=== PATIENT | male | born 1970 | race Two or more races ===

== ENCOUNTER 2018-05-03 03:44 | Emergency (ER) | payer MEDICARE ==
[~2018-05-03] VITALS: Ht 160 cm; Wt 65.8 kg
[2018-05-03 07:26] VITALS: BP 110/78
== END 2018-05-03 08:22 | disposition home or self-care (01) ==
LOC: ER 03:46
DX: L03.114 Cellulitis of left upper limb (principal); Z59.0 Homelessness
CPT/HCPCS: 73130

== ENCOUNTER 2024-07-17 18:21 | Inpatient (IN) | payer OTHER ==
[~2024-07-17] VITALS: Ht 160 cm; Wt 81.0 kg
[2024-07-17] MEDS: DexAMETHasone SOD PHOS 10MG/1ML VIAL INJ IM ONE (18:30)
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
[2024-07-17] MEDS: ALBUTEROL SULF 2.5 MG/0.5ML(0.5%) NEB SOLN NEB ONE (18:47)
[2024-07-17] MEDS: IPRATROPIUM BROM 0.5 MG/2.5ML INH SOL NEB ONE (18:47)
--- NOTE | 2024-07-17 18:59 | DVH ---
EXAMINATION: AP portable chest radiograph CLINICAL HISTORY: Shortness of breath COMPARISON: None TECHNIQUE: Portable AP upright view of the chest FINDINGS: Bibasilar airspace disease left worse than right. IMPRESSION: 1. Bibasilar airspace disease left worse than right
[2024-07-17 19:08] LABS: Eosinophils # (auto) 0 10 ^3/uL (0-0.8); Eosinophils % (auto) 0.1 % (0.0-7.0); Nucleated Red Blood Cells % 0.1 %
[2024-07-17 19:10] LABS: Basophils # (auto) 0 10 ^3/uL (0-0.2); Basophils % (auto) 0.2 % (0.0-2.0); Hematocrit 30.6 % (41.0-53.0); Hemoglobin 9.3 g/dL (13.5-17.5); Lymphocytes # (auto) 0.2 10 ^3/uL (0.4-5.4); Lymphocytes % (auto) 1.4 % (10.0-50.0); Mean Corpuscular Hemoglobin 18.8 pg (28.0-32.0); Mean Corpuscular Hgb Conc. 30.4 g/dL (32.0-36.0); Monocytes # (auto) 0.3 10 ^3/uL (0-1.3); Monocytes % (auto) 1.9 % (0.0-12.0); Neutrophils # (auto) 15.9 10 ^3/uL (1.6-8.6); Neutrophils % (auto) 96.4 % (37.0-80.0); Platelet Count (auto) 329 10^3/uL (140-450); Red Blood Cells 4.93 10^6/uL (4.5-5.90); White Blood Cell 16.5 10^3/uL (4.4-10.8)
[2024-07-17 19:13] LABS: Red Cell Distribution Width 20.1 % (11.8-14.3)
[2024-07-17 19:35] LABS: Potassium 3.9 mmol/L (3.5-5.1)
[2024-07-17 19:36] LABS: Anion Gap 10 (5-15); Carbon Dioxide 25 mmol/L (20-31)
[2024-07-17 19:37] LABS: Calcium 9.5 mg/dL (8.7-10.4)
[2024-07-17] MEDS: ACETAMINOPHEN 325 MG TAB PO ONE (19:40)
[2024-07-17 19:42] LABS: BUN/Creatinine Ratio 18.4 (10.0-20.0); Blood Urea Nitrogen 19 mg/dL (9-23); Lipase 31 U/L (12-53)
[2024-07-17 19:43] LABS: Chloride 92 mmol/L (98-107); Glucose 133 mg/dL (74-106); Sodium 127 mmol/L (136-145)
[2024-07-17 20:00] LABS: Lactic Acid w/Reflex 2.2 mmol/L (0.4-2.0)
[2024-07-17] MEDS: SODIUM CHLORIDE 0.9% 1,000 ML IV ONE (21:39)
[2024-07-17 21:45] LABS: COVID19 ANTIGEN SOFIA FIA NEGATIVE (NEGATIVE); Rapid Influenza A Negative (Negative); Rapid Influenza B Negative (Negative)
[2024-07-17] MEDS: ONDANSETRON ODT 4 MG TAB PO ONE (22:27)
[2024-07-17] MEDS: HYDROcodone-ACET 10/325MG TAB PO ONE (22:27)
[2024-07-18 01:32] VITALS: PULSE 94; RESP 15; O2SAT 97
[2024-07-18] MEDS: AZITHROMYCIN 500MG/ 250ML 250 ML IV ONE (03:10)
[2024-07-18] MEDS ORDERED: ACETAMINOPHEN 325 MG TAB PO PRN (03:45)
[2024-07-18] MEDS ORDERED: ONDANSETRON HCL 4 MG/2 ML VIAL IV PRN (03:45)
[2024-07-18] MEDS ORDERED: ALBUTEROL SULF 2.5 MG/0.5ML(0.5%) NEB SOLN NEB PRN (03:45)
[2024-07-18] MEDS: SODIUM CHLORIDE 0.9% 1,000 ML IV SCH (03:45)
[2024-07-18] MEDS ORDERED: DOCUSATE SOD 100 MG CAP PO PRN (03:45)
[2024-07-18] MEDS: cefTRIAXone 1GM/50ML D5W 50 ML IV ONE (03:45)
[2024-07-18] MEDS ORDERED: IPRATROPIUM BROM 0.5 MG/2.5ML INH SOL NEB PRN (03:45)
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
[2024-07-18] MEDS ORDERED: MORPHINE SULFATE INJ 2 MG/ml SYRG IV PRN (04:15)
[2024-07-18] MEDS ORDERED: NITROGLYCERIN 0.4 MG SL TAB SL PRN (04:15)
[2024-07-18 04:21] LABS: Basophils # (auto) 0.1 10 ^3/uL (0-0.2); Basophils % (auto) 0.4 % (0.0-2.0); Eosinophils # (auto) 0 10 ^3/uL (0-0.8); Eosinophils % (auto) 0.1 % (0.0-7.0); Lymphocytes # (auto) 0.2 10 ^3/uL (0.4-5.4); Lymphocytes % (auto) 1.4 % (10.0-50.0); Nucleated Red Blood Cells % 0.1 %
[2024-07-18 04:23] LABS: Hematocrit 25.9 % (41.0-53.0); Hemoglobin 7.9 g/dL (13.5-17.5); Mean Corpuscular Hemoglobin 19.2 pg (28.0-32.0); Mean Corpuscular Hgb Conc. 30.6 g/dL (32.0-36.0); Mean Corpuscular Volume 62.8 fL (80.0-100.0); Monocytes # (auto) 0.9 10 ^3/uL (0-1.3); Neutrophils # (auto) 13.7 10 ^3/uL (1.6-8.6); Neutrophils % (auto) 92.1 % (37.0-80.0); Platelet Count (auto) 272 10^3/uL (140-450); Red Blood Cells 4.13 10^6/uL (4.5-5.90); Red Cell Distribution Width 20.3 % (11.8-14.3); White Blood Cell 14.9 10^3/uL (4.4-10.8)
[2024-07-18 04:42] LABS: Alanine Aminotransferase 16 U/L (7-40); Albumin 3.7 g/dL (3.2-4.8); Alkaline Phosphatase 76 U/L (46-116); Anion Gap 8 (5-15); Aspartate Aminotransferase 22 U/L (13-40); BUN/Creatinine Ratio 15.7 (10.0-20.0); Blood Urea Nitrogen 14 mg/dL (9-23); Calcium 8.8 mg/dL (8.7-10.4); Carbon Dioxide 24 mmol/L (20-31); Chloride 99 mmol/L (98-107); Potassium 4.2 mmol/L (3.5-5.1)
[2024-07-18 04:43] LABS: Bilirubin, Total 0.5 mg/dL (0.2-1.0); Total Protein 6.2 g/dL (5.7-8.2)
[2024-07-18 04:45] LABS: Glucose 199 mg/dL (74-106); Sodium 131 mmol/L (136-145)
[2024-07-18 06:27] LABS: Hypochromia Moderate; Platelet Estimate Adequate
[2024-07-18 07:30] VITALS: PULSE 89; RESP 17; O2SAT 99
[2024-07-18 08:58] VITALS: BP 121/71; PULSE 89; RESP 17; TEMP 97.7; O2SAT 99
[2024-07-18] MEDS ORDERED: AZITHROMYCIN 500MG/ 250ML 250 ML IV SCH (10:00)
[2024-07-18 10:16] LABS: Urine Bacteria None Seen /hpf (None Seen)
[2024-07-18] MEDS: HYDROcodone-ACET 5/325MG TAB PO PRN (10:32)
[2024-07-18] MEDS: DexAMETHasone SOD PHOS 10MG/1ML VIAL INJ IV SCH (10:33)
[2024-07-18 10:35] LABS: Urine Blood 1+ /uL (Negative); Urine Clarity Clear (Clear); Urine Color Light-Yellow (Yellow); Urine Protein, UAD 1+ (Negative); Urine Specific Gravity 1.023 (1.001-1.035); Urine Urobilinogen Normal (Negative); Urine WBC 3 /hpf (0 - 3); Urine pH 6.5 (5.0-9.0)
[2024-07-18] MEDS: FAMOTIDINE (10MG/ML) 2ML VL IV SCH (10:41)
[2024-07-18 10:43] LABS: Amphetamine Screen, Urine Pos (NEGATIVE); Barbiturate Scree,Urine Neg (NEGATIVE); Benzodiazephine Screen, Urine Neg (NEGATIVE); Cannabinoid Screen, Urine Neg (NEGATIVE); Cocaine Screen, Urine Neg (NEGATIVE); Opiate Scree,Urine Pos (NEGATIVE); Phencyclidine Screen, Urine Neg (NEGATIVE)
[2024-07-18 12:09] VITALS: BP_SYST 85; BP_SYST 91; BP_DIAS 37; BP_DIAS 43; PULSE 102; RESP 99; TEMP 98.7; O2SAT 99
[2024-07-18] MEDS: SODIUM CHLORIDE 0.9% 1,000 ML IV ONE (12:50)
[2024-07-18 19:15] VITALS: O2SAT 98
[2024-07-18 19:27] VITALS: BP 101/50; PULSE 109; RESP 14; TEMP 98.3; O2SAT 97
--- NOTE | 2024-07-18 22:03 | DVHDS2 ---
Discharge Summary Date of Admission Jul 18, 2024 at 04:05 Date of Discharge: Jul 18, 2024 Admitting Diagnosis Anemia, unspecified Hyponatremia Dehydration Leukocytosis, unspecified Pneumonia, unspecified organism Labs/Diagnostic Data: Laboratory Results Test 07/18/24 10:10 07/18/24 04:05 07/17/24 20:44 07/17/24 18:53 Urine Color Light-yellow (Yellow) Urine Clarity Clear (Clear) Urine pH 6.5 (5.0-9.0) Urine Specific [place] 1.023 (1.001-1.035) Urine Protein 1+ (Negative) Urine Ketones Negative (Negative) Urine Blood 1+ /uL (Negative) Urine Nitrite Negative (Negative) Urine Bilirubin Negative (Negative) Urine Urobilinogen Normal mg/dL (Negative) Urine Leukocyte Esterase Negative /uL (Negative) Urine RBC 1 /hpf (0 - 3) Urine WBC 3 /hpf (0 - 3) Urine Squamous Epithelial Cells None seen /hpf (<5) Urine Bacteria None seen /hpf (None Seen) Urine Glucose Normal mg/dL (Normal) Urine Opiates Screen Pos (NEGATIVE) Urine Fentanyl Screen Neg (NEGATIVE) Urine Barbiturates Screen Neg (NEGATIVE) Urine Phencyclidine Screen Neg (NEGATIVE) Urine Amphetamines Screen Pos (NEGATIVE) Urine Benzodiazepines Screen Neg (NEGATIVE) Urine Cocaine Screen Neg (NEGATIVE) Urine Cannabinoids Screen Neg (NEGATIVE) White Blood Count 14.9 10^3/uL (4.4-10.8) Red Blood Count 4.13 10^6/uL (4.5-5.90) Hemoglobin 7.9 g/dL (13.5-17.5) Hematocrit 25.9 % (41.0-53.0) Mean Corpuscular Volume 62.8 fL (80.0-100.0) Mean Corpuscular Hemoglobin 19.2 pg (28.0-32.0) Mean Corpuscular Hemoglobin Concent 30.6 g/dL (32.0-36.0) Red Cell Distribution Width 20.3 % (11.8-14.3) Platelet Count 272 10^3/uL (140-450) Mean Platelet Volume 7.0 fL (6.9-10.8) Neutrophils (%) (Auto) 92.1 % (37.0-80.0) Lymphocytes (%) (Auto) 1.4 % (10.0-50.0) Monocytes (%) (Auto) 6.0 % (0.0-12.0) Eosinophils (%) (Auto) 0.1 % (0.0-7.0) Basophils (%) (Auto) 0.4 % (0.0-2.0) Neutrophils # (Auto) 13.7 10 ^3/uL (1.6-8.6) Lymphocytes # (Auto) 0.2 10 ^3/uL (0.4-5.4) Monocytes # (Auto) 0.9 10 ^3/uL (0-1.3) Eosinophils # (Auto) 0 10 ^3/uL (0-0.8) Basophils # (Auto) 0.1 10 ^3/uL (0-0.2) Nucleated Red Blood Cells 0.1 % Platelet Estimate Adequate Hypochromasia (manual) Moderate Microcytosis Moderate Sodium Level 131 mmol/L (136-145) Potassium Level 4.2 mmol/L (3.5-5.1) Chloride Level 99 mmol/L (98-107) Carbon Dioxide Level 24 mmol/L (20-31) Anion Gap 8 (5-15) Blood Urea Nitrogen 14 mg/dL (9-23) Creatinine 0.89 mg/dL (0.700-1.30) Glomerular Filtration Rate Calc 104 mL/min (>90) BUN/Creatinine Ratio 15.7 (10.0-20.0) Serum Glucose 199 mg/dL (74-106) Calcium Level 8.8 mg/dL (8.7-10.4) Total Bilirubin 0.5 mg/dL (0.2-1.0) Aspartate Amino Transferase (AST) 22 U/L (13-40) Alanine Aminotransferase (ALT) 16 U/L (7-40) Alkaline Phosphatase 76 U/L (46-116) Total Protein 6.2 g/dL (5.7-8.2) Albumin 3.7 g/dL (3.2-4.8) Lactic Acid Level 1.9 mmol/L (0.4-2.0) Troponin I High Sensitivity 28 ng/L (</=54) Lipase 31 U/L (12-53) Test 07/17/24 07:54 Influenza Type A Antigen Negative (Negative) Influenza Type B Antigen Negative (Negative) SARS-CoV-2 Antigen (Rapid) Negative (NEGATIVE) Other Laboratory Tests 07/18/24 04:05 Brief Hx & Hospital Course: This is a 57 years old homeless male come to emergency department for flu-like symptom. He had two day of cough and shortness for breath. He is very weak and had generalized body pains. The patient was admitted. The patient was given IV fluid resuscitation for dehydration. The patient is still febrile and had some tachypneic. Today I see the patient I will give him another extra normal saline bolus x1 L. if the blood pressures still remained low which is 80/40 I anticipate to upgrade the patient to ICU in started him on vasopressor medication Levophed. The patient also was put on IV antibiotic with Rocephin 1 g IV q.day and Zithromax 500 mg IV q.day The patient however who anxious at night in left against medical advice. The patient verbally understands without treatment he might come back sicker or even . The patient is still one to leave against medical advice. Physical exam was done prior to patient signed out against medical advice show HEENT: Normocephalic atraumatic pupils equal react to light and accommodation. Extraocular muscles intact, conjunctiva pink, oropharynx moist, no thrush, no exudate. Lymphatic: No lymphadenopathy Cardiovascular exam: S1, S2 was heard. No murmurs, rubs, gallops Lung: Clear on auscultation bilaterally, no wheeze, rale, rhonchi. GI: Abdominal soft, nondistended, nontenderness, positive bowel sounds. Extremity: No crepitus, cyanosis, edema. Bilateral upper hand amputated. Pedal pulses present bilateral. Full range of motion. Skin: Normal turgor, no rash. Psych: Alert, oriented x3. Neurology: No focal deficits, cranial nerve II to XII grossly intact. This medical document was created using an electronic medical record system with [employer] direct computerized dictation system. Although this document has been carefully reviewed, there may still be some phonetic and typographical errors. These areas are purely typographical due to imperfections of the software programs, and do not reflect any compromise in the patient's medical care. Condition at Discharge: Guarded Final Diagnosis/Problems List Sepsis Anemia of chronic disease Hyponatremia Dehydration Pneumonia probable Gram-positive pneumonia Leukocytosis due to pneumonia Discharge Disposition: AMA Discharge Statement: "Patient was advised to return to the ER or call 911 if any headaches, dizziness, shortness of breath, chest pain, abdominal pain, bleeding, fevers, or worsening of medical condition. Patient was counseled about treatment plan, medications, possible side effects, patientverbalized understanding. All questions were answered to the best of my ability. This discharge took greater then 30 minutes in planning, reviewing documentation, counseling the patient, and discussing with other team members." ASSESSMENT ASSESSMENT Assessment Date of Service: Jul 18, 2024 Billing Provider: NADEGE GAO MD Common Visit Codes: 66252-JDO/OBS SAME DATE (HIGH) NADEGE GAO MD Jul 18, 2024 22:03
[2024-07-19] MEDS ORDERED: AZITHROMYCIN 500MG/ 250ML 250 ML IV SCH (03:00)
[2024-07-19] MEDS ORDERED: cefTRIAXone 1GM/50ML D5W 50 ML IV SCH (04:00)
== END 2024-07-18 20:25 | disposition left against medical advice (07) | DRG 871 ==
LOC: EDUNIT# 18:21 → EDBD 18:21 → ER 18:21 → TELE 07-18 04:05
PROVIDERS: ADMIT Nurse Practitioner Family; ATTEND Internal Medicine
DX: A41.9 Sepsis, unspecified organism (principal); J15.9 Unspecified bacterial pneumonia; Z59.00 Homelessness unspecified; E87.1 Hypo-osmolality and hyponatremia; Z53.29 Procedure and treatment not carried out because of patient's decision for other reasons; Z20.822 Contact with and (suspected) exposure to COVID-19; E86.0 Dehydration; D63.8 Anemia in other chronic diseases classified elsewhere; Z89.022 Acquired absence of left finger(s); Z89.021 Acquired absence of right finger(s)
CPT/HCPCS: 36415; 71045; 80048; 80053; 80307; 81001; 83605; 83690; 84484; 85025; 87040; 87077; 87186; 87426; 87804; 94640; G0378; J1100; Q0162

== ENCOUNTER 2025-02-07 07:00 | Emergency (ER) | payer OTHER | END 2025-02-07 07:55 | disposition left against medical advice (07) | LOC: ER 07:00 | DX: R51.9 Headache, unspecified (principal); Z53.21 Procedure and treatment not carried out due to patient leaving prior to being seen by health care provider ==

== ENCOUNTER 2025-05-07 11:39 | Emergency (ER) | payer OTHER ==
[~2025-05-07] VITALS: Ht 160 cm; Wt 67.0 kg
[2025-05-07 11:41] VITALS: BP 128/77; RESP 18; TEMP 97; O2SAT 95
[2025-05-07 11:51] VITALS: PULSE 105
--- NOTE | 2025-05-07 11:59 | ECG ---
[facility] Test Date: 2025-05-07 Test Time: 11:51:22 Pat Name: PARKER QUINTANILLA Department: Room: Gender: M Senior Linux Administrator: JOANNA : 1970 Requested By: MOSES WHITE Order Number: [id number] Reading MD: Howard Benavides Measurements Intervals [place] Rate: 105 P: 78 OR: 120 QRS: 72 QRSD: 68 T: 58 QT: 327 QTc: 433 Interpretive Statements Sinus tachycardia Ventricular bigeminy Aberrant complex RSR' in V1 or V2, probably normal variant Electronically Signed On 05-07-2025 22:21:19 PDT by Howard Benavides Please click the below link to view image of tracing.
--- NOTE | 2025-05-07 12:31 | ED.PDOC ---
GI ASSESSMENT HPI Comments HPI: 54 y/o M, presents to the ED for CC of abdominal pain. Patient states, he has been experiencing diffuse abdominal pain with associated symptoms of nausea/vomiting x2-3days. Patient relays, symptoms may have stemmed from eating food contaminated with feces. Patient denies fever, excessive thirst, diarrhea, or headache. No other symptoms or modifying factors are present at this time. Initial Vitals BP: HR: RR: O2: Temp: Past Medical History: Past Surgical History: SKIN GRAFT, HAND/ARM RECONSTRUCTIONS Social History: Denies ETOH, smoking, and drug use. Medications: DENIES ANY Allergies: NKA HPI: Poor Historian. REVIEW OF SYSTEMS: CONSTITUTIONAL: Denies acute: fever, diaphoresis, chills, generalized weakness. HEAD: Denies acute: headache, photophobia Eyes: Denies acute: Double vision, vision loss, eye pain, eye discharge. EARS: Denies acute: tinnitus, hearing loss, ear discharge, ear pain, THROAT: Denies acute: sore throat, swelling, difficulty swallowing , pain with swallowing, change in voice. NECK: Denies acute: neck pain, neck swelling, stiff neck. HEART: Denies acute : chest pain, palpitations, LUNGS: Denies acute: SOB, wheezing, cough, hemoptysis ABDOMEN: Denies acute: , diarrhea, melena , hematemesis, hematochezia SKIN: Denies acute: rash, redness, lesions, itchiness. EXTREMITIES: Denies acute: calf pain, numbness, tingling, weakness, denies pain in extremity. Denies acute: Low back pain. Neuro: Denies acute: focal neurological deficit, motor or sensory focal neurological deficit, tremors, seizure like activity, confusion, dizziness, change in mental status, loss of bowel or bladder function, cauda equina like symptoms. : Denies acute: dysuria, hematuria, flank pain, increase in urinary frequency. PSYCH: Denies acute: hallucination, suicidal ideation, homicidal ideation. PHYSICAL EXAM: General: -----mild---acute distress, awake and alert. Head: normocephalic, atraumatic. Neck: supple, trachea is midline, no swelling. Throat: Normal phonation. Eyes:, no erythema, no purulent discharge, no proptosis, no icterus. Heart: regular rate, regular rhythm, no significant murmur appreciated. Lungs: no apparent respiratory distress, Able to speak in full sentences. No wheezing, no rhonchi, no crackles. No stridors Clear to auscultation bilaterally. Abdomen: Nonspecific mild generalized tender to palpation, non distended, soft, no guarding, no rebound, + bowel sounds. Neuro: Awake, Alert, oriented to name, self, situation, follows commands GCS=15. Speech is normal. Skin: no petechia, no purpura, no cyanosis, non-pale, not jaundice. Noted multiple diffuse skin grafts Lower extremities: --no - Pitting edema no deformity, no focal swelling, no calf TTP. Makes eye contact. moves all four extremities. Face: no apparent facial droop. Ambulating in the ED independently. ED COURSE: DISCLAIMER: This medical document was created using an electronic medical record system with voice recognition software and computerized dictation system. Although this document has been carefully reviewed, there might still be some phonetic and typographical errors. Occasional wrong-word or "sound-alike" substitutions may have occurred due to the inherent limitations of voice recognition software. These areas are purely typographical due to imperfections of the software programs and do not reflect any compromise in the patient's medical care. Please read the chart carefully and recognize, using context, where these substitutions have occurred. Chief Complaint: Abdominal Pain Time Seen by MD: 12:00 Reviewed Notes: Nurses Notes, Medications, Allergies Allergies: Coded Allergies: No Known Drug Allergy (Verified Allergy, Unknown, 07/18/24) Home Meds Active Scripts Ondansetron Odt 4MG Tab (ZOFRAN PO) 4 Mg Tb, 4 MG PO Q8HPRN PRN for 3 Days, #9 TAB ODT TAB-DISSOLVE IN MOUTH, THEN SWALLOW Prov:MOSES WHITE DO 05/07/25 Information Source: Patient Mode of Arrival: Ambulatory Timing: Days Duration: Since onset Prehospital treatment: None Vomitus: Watery Stool: Normal Severity: Moderate Recent: None Recent Hx of: None Pain Location: Diffuse Modifying Factors: Nothing Associated sign and symptoms: Nausea, Vomiting, Abdominal Pain Was a procedure done? Was a procedure done?: No GI differential Dx Differential Diagnosis: Gastritis/PUD, Gastroenteritis, Electrolyte Imbalance, Food Poisoning, Bacterial, Parasitic, Viral, Other (DDX include but not limited to diverticulitis, colitis, gastroenteritis, acute abdomen, SBO, enteritis, constipation, volvulus, appendicitis, Gallbladder disease, choledocolithiasis, ascending cholangitis, pancreatitis, intraAbdominal mass/neoplasm, hepatitis, U TI, pylonephritis, kidney stone, aneurysm, dissection, Inflammatory bowel disease, gastroparesis, ischemic bowel.) X-Ray, Labs, Meds, VS Vital Signs Date Time Temp Pulse Resp B/P (MAP) Pulse Ox O2 Delivery O2 Flow Rate FiO2 05/07/25 11:51 105 05/07/25 11:41 97.0 129 18 128/77 95 97.0 Lab Test 05/07/25 13:32 Range/Units White Blood Count 8.0 4.4-10.8 10^3/uL Red Blood Count 5.26 4.5-5.90 10^6/uL Hemoglobin 9.3 L 13.5-17.5 g/dL Hematocrit 31.7 L 41.0-53.0 % Mean Corpuscular Volume 60.3 L 80.0-100.0 fL Mean Corpuscular Hemoglobin 17.6 L 28.0-32.0 pg Mean Corpuscular Hemoglobin Concent 29.2 L 32.0-36.0 g/dL Red Cell Distribution Width 21.8 H 11.8-14.3 % Platelet Count 434 140-450 10^3/uL Mean Platelet Volume 8.2 6.9-10.8 fL Neutrophils (%) (Auto) 71.4 37.0-80.0 % Lymphocytes (%) (Auto) 20.8 10.0-50.0 % Monocytes (%) (Auto) 6.2 0.0-12.0 % Eosinophils (%) (Auto) 1.3 0.0-7.0 % Basophils (%) (Auto) 0.3 0.0-2.0 % Neutrophils # (Auto) 5.7 1.6-8.6 10 ^3/uL Lymphocytes # (Auto) 1.7 0.4-5.4 10 ^3/uL Monocytes # (Auto) 0.5 0-1.3 10 ^3/uL Eosinophils # (Auto) 0.1 0-0.8 10 ^3/uL Basophils # (Auto) 0 0-0.2 10 ^3/uL Nucleated Red Blood Cells 0.0 % Sodium Level 139 136-145 mmol/L Potassium Level 4.3 3.5-5.1 mmol/L Chloride Level 102 98-107 mmol/L Carbon Dioxide Level 27 20-31 mmol/L Anion Gap 10 5-15 Blood Urea Nitrogen 20 9-23 mg/dL Creatinine 0.81 0.700-1.30 mg/dL Glomerular Filtration Rate Calc 106 >90 mL/min BUN/Creatinine Ratio 24.7 H 10.0-20.0 Serum Glucose 116 H 74-106 mg/dL Lactic Acid Level 1.5 0.4-2.0 mmol/L Calcium Level 9.1 8.7-10.4 mg/dL Total Bilirubin 0.2 0.2-1.0 mg/dL Aspartate Amino Transferase (AST) 14 13-40 U/L Alanine Aminotransferase (ALT) 15 7-40 U/L Alkaline Phosphatase 132 H 46-116 U/L Troponin I High Sensitivity 3 L </=54 ng/L Total Protein 7.4 5.7-8.2 g/dL Albumin 4.3 3.2-4.8 g/dL Lipase 31 12-53 U/L [place] [address] Ph: [phone] DIAGNOSTIC IMAGING Diagnostic Imaging Report : [id number] Signed PATIENT: PARKER QUINTANILLA ACCT: [id number] UNIT: [id number] : 1970 LOC: ER ROOM / BED: / AGE / SEX: 54 / M ADM STATUS: REG ER SERVICE 1210 ORDERING PHYSICIAN: MOSES WHITE DO PROCEDURE(s): ABPL - CT AB PEL WO CON-NO ORAL OR IV REASON: abd pain n/v ORDER NUMBER(s): [id number], ACCESSION NUMBER(s): [id number] Exam: CT CT AB PEL WO CON-NO ORAL OR IV History: abd pain n/v Comparison Study: None Technique: Multidetector spiral CT of the abdomen was performed from lung bases to pubic symphysis. Imaging was performed without IV contrast. Axial, coronal and sagittal multiplanar reformats were obtained from the axial data set by the technologist. Radiation Dose : 1. Abdomen/Pelvis: CTDIvol 5.29 mGy, DLP 3.92 mGy*cm. Findings: Evaluation of solid organs is limited due to lack of intravenous contrast use. Lung Bases: No acute or significant lung base finding. Normal heart size. No pleural or pericardial effusion. Liver: The liver is normal in size. No focal lesions. Gallbladder and Biliary Tree: Unremarkable Spleen: Unremarkable Pancreas: The pancreas is grossly normal in appearance. Adrenal Glands: Unremarkable Kidneys: Kidneys are grossly normal without calculi or hydronephrosis. Bladder: Grossly unremarkable for degree of distention. Bowel: The stomach is grossly normal in appearance. Small bowel and colon are normal in caliber and distribution. Normal appendix is visualized in the right lower quadrant without findings of appendicitis. Ascites: Absent Lymphadenopathy: No mesenteric, retroperitoneal or periportal lymphadenopathy. Abdominal Wall and Mesentery: Unremarkable. Vasculature: The visualized abdominal aorta is normal in size and caliber. Evaluation of abdominal and pelvic vessels is limited due to lack of intravenous contrast. Pelvic Organs: Unremarkable Musculoskeletal: No aggressive focal bony lesions, acute fractures or dislocation. IMPRESSION: 1. No acute abdominal or pelvic findings. Radiation optimization: All CT scans at this facility use at least one of these dose optimization techniques: automated exposure control mA and/or kV adjustme nt per patient size (includes targeted exams where dose is matched to clinical indication) or iterative reconstruction. ATED BY: RAMSES CHANEY MD DICTATED DATE/TIME: 05/07/251311 SIGNED BY: RAMSES CHANEY MD SIGNED DATE/TIME: 05/07/251311 CC: Time of 1ST Reevaluation: 12:30 Reevaluation 1ST: Unchanged Patient Education/Counseling: Diagnosis, Treatment Family Education/Counseling: No Family Present Comments MDM: patient presented with the above HPI.--abdominal pain nausea and vomiting----workup was initiated. patient was found with the above mentioned diagnosis. the following medications were ordered: please refer to order lists of meds and tests obtained by myself Dr. White. Patient eloped All the reports of any imaging studies that were ordered by myself were reviewed by myself. SEPSIS Sepsis Screen Date sepsis recognized/suspect: May 07, 2025 Time Sepsis recognized/suspect: 1143 Recent Procedure: No On Antibiotic Therapy: No Respiratory Rate >20: No Heart Rate >90: Yes Temp<36 C (96.8 F) or >38.3 C: No SBP <90 or MAP <65 mmHG: No New Acute Mental Status Change: No Is the patient on CPAP, BIPAP,: No Physician Orders Electrocardigram (05/07/25 11:57) Manager Domestic (05/07/25 ) Urinalysis (05/07/25 12:10) Drug Screen (05/07/25 12:10) Ct Ab Pel Wo Con-No Oral Or Iv (05/07/25 12:10) Vital Signs Date Time Temp Pulse Resp B/P (MAP) Pulse Ox O2 Delivery O2 Flow Rate FiO2 05/07/25 11:51 105 05/07/25 11:41 97.0 129 18 128/77 95 97.0 Laboratory Tests Test 05/07/25 13:32 Lactic Acid Level 1.5 mmol/L (0.4-2.0) White Blood Count 8.0 10^3/uL (4.4-10.8) Departure 1 Departure Time of Disposition: 14:56 Impression: Primary Impression: Abdominal pain Additional Impressions: Nausea and vomiting Anemia Eloped from emergency department Disposition: 07 LEFT AWOL/ELOPED Condition: Stable Additional Instructions: Patient eloped: Additional instructions: Please read all instructions provided in this packet carefully. You MUST follow-up with your primary care/family doctor in 1 to 2 days. If you are unable to see your primary care/family doctor, please return to our emergency room for re-assessment and re-evaluation in 1 to 2 days. Return to the emergency room here in our facility or to the nearest ER [facility] if your symptoms change or worsen. CONSULTATIONS: you MUST Follow-up for consultation as soon as possible with: -gastroenterology in 1-2 days. Please call for appointment. You MUST call the consultants office yourself to make an appointment. You may need to arrange that through your insurance and/or your primary/family doctor. If you are unable to see the [employer] consultant in 1 to 2 days, you must return to our emergency room (or any other ER of your choice) for re-assessment and re- evaluation. Adequate fluid hydration. Although you have been discharged from the Emergency Department, this does not mean that you have a "clean bill of health". No definitive diagnosis for your symptoms has been made today. It is possible that you are in the process of developing a serious illness. This is why you must return to the ED without fail if any new or worsening symptoms develop. Below is a copy of your radiological report for follow up: [address] [address] Ph: [phone] DIAGNOSTIC IMAGING Diagnostic Imaging Report : [id number] Signed PATIENT: PARKER QUINTANILLA ACCT: [id number] UNIT: [id number] : 1970 LOC: ER ROOM / BED: / AGE / SEX: 54 / M ADM STATUS: REG ER SERVICE 1210 ORDERING PHYSICIAN: MOSES WHITE DO PROCEDURE(s): ABPL - CT AB PEL WO CON-NO ORAL OR IV REASON: abd pain n/v ORDER NUMBER(s): [id number], ACCESSION NUMBER(s): [id number] Exam: CT CT AB PEL WO CON-NO ORAL OR IV History: abd pain n/v Comparison Study: None Technique: Multidetector spiral CT of the abdomen was performed from lung bases to pubic symphysis. Imaging was performed without IV contrast. Axial, coronal and sagittal multiplanar reformats were obtained from the axial data set by the technologist. Radiation Dose : 1. Abdomen/Pelvis: CTDIvol 5.29 mGy, DLP 3.92 mGy*cm. Findings: Evaluation of solid organs is limited due to lack of intravenous contrast use. Lung Bases: No acute or significant lung base finding. Normal heart size. No pleural or pericardial effusion. Liver: The liver is normal in size. No focal lesions. Gallbladder and Biliary Tree: Unremarkable Spleen: Unremarkable Pancreas: The pancreas is grossly normal in appearance. Adrenal Glands: Unremarkable Kidneys: Kidneys are grossly normal without calculi or hydronephrosis. Bladder: Grossly unremarkable for degree of distention. Bowel: The stomach is grossly normal in appearance. Small bowel and colon are normal in caliber and distribution. Normal appendix is visualized in the right lower quadrant without findings of appendicitis. Ascites: Absent Lymphadenopathy: No mesenteric, retroperitoneal or periportal lymphadenopathy. Abdominal Wall and Mesentery: Unremarkable. Vasculature: The visualized abdominal aorta is normal in size and caliber. Evaluation of abdominal and pelvic vessels is limited due to lack of intravenous contrast. Pelvic Organs: Unremarkable Musculoskeletal: No aggressive focal bony lesions, acute fractures or dislocation. IMPRESSION: 1. No acute abdominal or pelvic findings. Radiation optimization: All CT scans at this facility use at least one of these dose optimization techniques: automated exposure control mA and/or kV adjustment per patient size (includes targeted exams where dose is matched to clinical indication) or iterative reconstruction. ATED BY: RAMSES CHANEY MD DICTATED DATE/TIME: 05/07/25 131 SIGNED BY: RAMSES CHANEY MD SIGNED DATE/TIME: 05/07/25 131 CC: e-Prescriptions Ondansetron Odt 4MG Tab (ZOFRAN PO) 4 Mg Tb 4 MG PO Q8HPRN PRN for 3 Days, #9 TAB ODT TAB-DISSOLVE IN MOUTH, THEN SWALLOW Prov: MOSES WHITE DO 05/07/25 Discharged With: Self Critical Care Note Critical Care Time?: No I personally scribed for MOSES WHITE DO ([email or web address]) on 05/07/25 at 12:31. Electronically submitted by Ibeth Phelps ([email or web address]). I personally scribed for MOSES WHITE DO ([email or web address]) on 05/07/25 at 14:01. Electronically submitted by Ibeth Phelps ([email or web address]). I personally scribed for MOSES WHITE DO ([email or web address]) on 05/07/25 at 14:59. Electronically submitted by Ibeth Phelps [email or web address]). MOSES WHITE DO May 07, 2025 12:31
--- NOTE | 2025-05-07 13:14 | DVH ---
Exam: CT CT AB PEL WO CON-NO ORAL OR IV History: abd pain n/v Comparison Study: None Technique: Multidetector spiral CT of the abdomen was performed from lung bases to pubic symphysis. Imaging was performed without IV contrast. Axial, coronal and sagittal multiplanar reformats were ob tained from the axial data set by the technologist. Radiation Dose : 1. Abdomen/Pelvis: CTDIvol 5.29 mGy, DLP 3.92 mGy*cm. Findings: Evaluation of solid organs is limited due to lack of intravenous contrast use. Lung Bases: No acute or significant lung base finding. Normal heart size. No pleural or pericardial effusion. Liver: The liver is normal in size. No focal lesions. Gallbladder and Biliary Tree: Unremarkable Spleen: Unremarkable Pancreas: The pancreas is grossly normal in appearance. Adrenal Glands: Unremarkable Kidneys: Kidneys are grossly normal without calculi or hydronephrosis. Bladder: Grossly unremarkable for degree of distention. Bowel: The stomach is grossly normal in appearance. Small bowel and colon are normal in caliber and d istribution. Normal appendix is visualized in the right lower quadrant without findings of appendici tis. Ascites: Absent Lymphadenopathy: No mesenteric, retroperitoneal or periportal lymphadenopathy. Abdominal Wall and Mesentery: Unremarkable. Vasculature: The visualized abdominal aorta is normal in size and caliber. Evaluation of abdominal a nd pelvic vessels is limited due to lack of intravenous contrast. Pelvic Organs: Unremarkable Musculoskeletal: No aggressive focal bony lesions, acute fractures or dislocation. IMPRESSION: 1. No acute abdominal or pelvic findings. Radiation optimization: All CT scans at this facility use at least one of these dose optimization stella hniques: automated exposure control mA and/or kV adjustment per patient size (includes targeted exam s where dose is matched to clinical indication) or iterative reconstruction.
[2025-05-07 13:52] LABS: Hemoglobin 9.3 g/dL (13.5-17.5); Nucleated Red Blood Cells % 0.0 %
[2025-05-07 13:54] LABS: Hematocrit 31.7 % (41.0-53.0); Mean Corpuscular Hemoglobin 17.6 pg (28.0-32.0); Mean Corpuscular Volume 60.3 fL (80.0-100.0)
[2025-05-07 14:13] LABS: Alanine Aminotransferase 15 U/L (7-40); Albumin 4.3 g/dL (3.2-4.8); Anion Gap 10 (5-15); BUN/Creatinine Ratio 24.7 (10.0-20.0); Blood Urea Nitrogen 20 mg/dL (9-23); Calcium 9.1 mg/dL (8.7-10.4); Carbon Dioxide 27 mmol/L (20-31); Chloride 102 mmol/L (98-107); Lipase 31 U/L (12-53); Potassium 4.3 mmol/L (3.5-5.1); Sodium 139 mmol/L (136-145); Total Protein 7.4 g/dL (5.7-8.2)
[2025-05-07 14:16] LABS: Alkaline Phosphatase 132 U/L (46-116); Bilirubin, Total 0.2 mg/dL (0.2-1.0); Glucose 116 mg/dL (74-106)
[2025-05-07] MEDS ORDERED: ZOFR4T PO (14:58)
[2025-05-07] MEDS: SODIUM CHLORIDE 0.9% 1,000 ML IV ONE (15:56)
[2025-05-07] MEDS: PANTOPRAZOLE 40 MG TAB PO ONE (15:57)
[2025-05-07] MEDS: ONDANSETRON HCL 4 MG/2 ML VIAL IV ONE (15:57)
[2025-05-07] MEDS: SUCRALFATE 1 GM TAB PO ONE (15:57)
[2025-05-07] MEDS: LIDOCAINE VISCOUS 2% 15ML UD PO ONE (15:57)
== END 2025-05-07 14:58 | disposition home or self-care (01) ==
LOC: ER 11:39
DX: R10.84 Generalized abdominal pain (principal); D64.9 Anemia, unspecified
CPT/HCPCS: 36415; 74176; 80053; 83605; 83690; 84484; 85025; 93005; 99284; J2405